=== PATIENT | male | born 1965 | race Caucasian/White ===

== ENCOUNTER 2022-12-18 12:30 | Outpatient (RCR) | payer SELFPAY ==
--- NOTE | 2022-12-18 12:43 | P.CONTMS_ITS ---
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 Horner and has been with a therapist Katie Romero that he has been meeting weekly for the past 10 months including cognitive behavioral approaches. The patient has also had intensive treatment at the [facility] at the [place] [facility] in 2020 and [address] in the summer of 2021. She the patient has had a number of significant losses over the past few years. His father who had been a assistant teaching professor and had been a quite a support for the patient he had been dealing with a very significant left hamstring issue that required intensive treatment in [place] and he was mostly bed ridden for 7 months despite intensive treatment including shockwave treatment and platelet transfusion. Also over this period of time patient had been dealing with issues related to his son who is having significant emotional problems and ultimately this also led to his divorce. The patient has a long history of depression starting in high school but this has been the most significant he reports significant lack of motivation energy ability to enjoy things feeling down depressed hopeless much of the time and at times thoughts that he would be better off . He has had he trouble concentrating and has had poor appetite and often does not want to leave the house. His PHQ-9 is 22 the patient's current medication includes Wellbutrin 300 mg fluoxetine 40 mg Adderall 10 mg twice a day buspirone 15 mg 3 times a day. The past 2 years the patient tried and which trial of Trintellix up to 20 mg day which was not helpful despite being on for over a couple months he had also been tried on Cymbalta up to 120 mg times months which was also generally not beneficial and had significant sexual side effects. The patient had also had a Lamictal trial during this trial which was not helpful. 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 [place] he is somewhat isolated he has a 19-year-old son in college that he is close with Substance History: none Trauma History: Physical trauma to laugh leg with chronic pain Meds/Allergies Meds Home Medications Medication Instructions Recorded Confirmed Type amlodipine 5 mg tablet 5 mg PO DAILY 12/18/22 12/18/22 History bupropion HCl 300 mg 24 hr tablet, 300 mg PO DAILY 12/18/22 12/18/22 History extended release fluoxetine 40 mg capsule 40 mg PO DAILY 12/18/22 12/18/22 History Allergies Allergies Allergy/AdvReac Type Severity Reaction Status Date / Time No Known Allergies Allergy Verified 12/18/22 12:42 Mental Status Exam Mental Status Exam Narrative: Wincing in pain intermittently Patient Appearance: Well Grooomed Patient Orientation: Person, Place, Time and Situation Level of Consciousness: Awake and Appropriate Mood Description: Depressed and Blunted Affect Description: Appropriate, Constricted, Depressed, Anxious and Apprehensive Patient Cognition Impaired: No Ability to Follow Directions: Good Speech Pattern: Clear Memory Description: Intact Hallucinations: None Delusions: Not Present Thought Process: Intact and Goal Oriented Thought Content: positive for Goal Oriented, positive for Preoccupation and negative for Homicidal Ideation Depressive Symptoms: Increased Anxiety, Diff. Making Decisions, Increased Irritability, Crying Spells, Loss of Int. in Activity, Feelings of Worthlessness, Hopelessness, Feelings of Guilt, Increased Fatigue, Thoughts of /Suicide, Low Self Esteem, Loss of Energy and Difficulty Concentrating Judgement: Good Assessment & Plan Assessment & Plan (1) Major depressive disorder, recurrent severe without psychotic features: Status: Acute Code(s): F33.2 - Major depressive disorder, recurrent severe without psychotic features (2) Attention deficit hyperactivity disorder: Status: Acute Code(s): F90.9 - Attention-deficit hyperactivity disorder, unspecified type Plan The patient has a history of severe recurrent depression t with multiple antidepressant trials. The patient's PHQ-9 is quite elevated and is significantly interfering with his ability to function in multiple capacities.here is no history of surgery above the head or neck planted electrode stimulators pacemaker cochlear implant or other contraindications to TMS. Medical history of mild hypertension treated with amlodipine history of hamstring tear with chronic incapacity and pain The patient was able to review information regarding TMS given literature the patient does wish if possible to go forward with treatment. Consideration could be given by doctors medhat to decrease Wellbutrin Total time managing care of this patient today __60__ minutes. Patient educated on: diagnosis, medication risk/benefits and TMS Informed Consent: understands
== END 2022-12-18 23:59 | disposition home or self-care (01) ==
LOC: HO.PTMS 12:30
PROVIDERS: PCP Hospitalist; Visit Provider Psychiatry & Neurology Psychiatry
DX: F33.2 Major depressive disorder, recurrent severe without psychotic features (principal); F90.9 Attention-deficit hyperactivity disorder, unspecified type
CPT/HCPCS: 99205

== ENCOUNTER → 2022-12-29 13:00 | Outpatient (BNV) | payer OTHER, SELFPAY | PROVIDERS: Visit Provider Psychiatry & Neurology Psychiatry | DX: F41.1 Generalized anxiety disorder (principal); F33.2 Major depressive disorder, recurrent severe without psychotic features | CPT/HCPCS: 90867; 90868 ==

== ENCOUNTER → 2023-01-02 11:30 | Outpatient (BNV) | payer OTHER, SELFPAY ==
--- NOTE | 2023-01-14 14:01 | A.OFFPSYCH_ITS ---
Intake Intake Visit Reasons: DEPRESSION Allergies No Known Allergies Allergy (Verified 12/18/22 12:42) HPI- Psychiatric Chief Complaint: DEPRESSION Assessment and Plan Counseling and coordination of Care Details: I spent [] minutes reviewing the record, seeing the patient and documenting in the medical record. Counseling provided to the patient/caregiver as outlined below. Addressed patient/caregiver concerns regarding current medication regime including effective adherence. Addressed patient/caregiver concerns regarding diagnosis and prognosis including accuracy of diagnosis, prognosis over time, impact of diagnosis. Addressed patient/caregiver concerns regarding impact of recent stressors. 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
== END ==
PROVIDERS: Visit Provider Psychiatry & Neurology Psychiatry
DX: F33.2 Major depressive disorder, recurrent severe without psychotic features (principal); F41.1 Generalized anxiety disorder
CPT/HCPCS: 90868; 90869

== ENCOUNTER → 2023-02-16 11:30 | Outpatient (BNV) | payer OTHER, SELFPAY | PROVIDERS: Visit Provider Psychiatry & Neurology Psychiatry | DX: F33.2 Major depressive disorder, recurrent severe without psychotic features (principal) | CPT/HCPCS: 90868 ==

== ENCOUNTER 2023-02-26 16:00 | Outpatient (RCR) | payer OTHER, SELFPAY ==
--- NOTE | 2022-12-30 11:09 | P.PNPS_ITS ---
TMS Daily Progress Note Daily TMS Progress Note Date of Service: 12/30/22 Week #: 1 Treatment #(07-21): 2 PHQ-9 Pre-Treatment (07-18): 22 PHQ-9 Most Recent (07-18): 22 Reviewed: TMS Tech Note Reviewed Verification: I have reviewed the TMS Jukebox Coin Collector Note and agree with the contents. The patient remains a candidate to continue TMS treatment per protocol. Assessment and Plan (1) Attention deficit hyperactivity disorder: Status: Acute (2) Major depressive disorder, recurrent severe without psychotic features: Status: Acute Plan pt with extensive anxiety sx difficulty with current stressors Time Spent With Patient Time: Total time managing care of this patient today ____ minutes.
--- NOTE | 2023-01-04 15:10 | P.PNPS_ITS ---
TMS Daily Progress Note Daily TMS Progress Note Date of Service: 12/31/22 Week #: 1 Treatment #(07-21): 3 PHQ-9 Pre-Treatment (07-18): 22 PHQ-9 Most Recent (07-18): 22 Reviewed: TMS Tech Note Reviewed Verification: I have reviewed the TMS Interventional Nurse Note and agree with the contents. The patient remains a candidate to continue TMS treatment per protocol. Assessment and Plan (1) Attention deficit hyperactivity disorder: Status: Acute (2) Major depressive disorder, recurrent severe without psychotic features: Status: Acute Plan pt with some post tx fatigue Time Spent With Patient Time: Total time managing care of this patient today ____ minutes.
--- NOTE | 2023-01-04 15:12 | P.PNPS_ITS ---
TMS Daily Progress Note Daily TMS Progress Note Date of Service: 01/01/23 Week #: 1 Treatment #(07-21): 4 PHQ-9 Pre-Treatment (07-18): 22 PHQ-9 Most Recent (07-18): 22 Reviewed: TMS Tech Note Reviewed Verification: I have reviewed the TMS Milling Supervisor Note and agree with the contents. The patient remains a candidate to continue TMS treatment per protocol. Assessment and Plan (1) Major depressive disorder, recurrent severe without psychotic features: Status: Acute Plan pt c/o fatigue nausea reviewed potential s/e fatigue with tms potentially pt has a lot of pre tx anxiety with somatic anxiety connection by hx Time Spent With Patient Time: Total time managing care of this patient today ____ minutes.
--- NOTE | 2023-01-04 15:16 | HO.TMSDAILY2 ---
TMS Daily Progress Note Daily TMS Progress Note Date of Service: 01/02/23 Week #: 1 Treatment #(07-21): 5 PHQ-9 Pre-Treatment (07-18): 22 PHQ-9 Most Recent (07-18): 22 Reviewed: TMS Tech Note Reviewed Verification: I have reviewed the TMS Accountant Budget Note and agree with the contents. The patient remains a candidate to continue TMS treatment per protocol. Assessment and Plan (1) Major depressive disorder, recurrent severe without psychotic features: Status: Acute (2) Generalized anxiety disorder: Status: Acute Plan spoke with pt regarding risks benefits side effects tendency toward impulsivity needs much reassurance looking at a vac and if he can set up neuro star tx in that setting tolerating tx Time Spent With Patient Time: Total time managing care of this patient today ____ minutes.
--- NOTE | 2023-01-13 22:05 | HO.TMSDAILY2 ---
TMS Daily Progress Note Daily TMS Progress Note Date of Service: 01/05/23 Week #: 2 Treatment #(07-21): 6 PHQ-9 Pre-Treatment (07-18): 22 PHQ-9 Most Recent (07-18): 14 Reviewed: TMS Tech Note Reviewed Verification: I have reviewed the TMS Electrical System Specialist Note and agree with the contents. The patient remains a candidate to continue TMS treatment per protocol. Assessment and Plan (1) Major depressive disorder, recurrent severe without psychotic features: Status: Acute (2) Generalized anxiety disorder: Status: Acute Plan The patient had a difficult time this weekend having increased anxiety and dysphoria. His mother's having difficult time and he had hard time being with her and his son got into some trouble over the weekend. The patient was increasingly restless eventually was able to settle down patient briefly seen case reviewed treatment tech Time Spent With Patient Time: Total time managing care of this patient today ____ minutes.
--- NOTE | 2023-01-13 22:11 | P.PNPS_ITS ---
TMS Daily Progress Note Daily TMS Progress Note Date of Service: 01/06/23 Week #: 2 Treatment #(07-21): 7 PHQ-9 Pre-Treatment (07-18): 22 PHQ-9 Most Recent (07-18): 14 Reviewed: TMS Tech Note Reviewed Verification: I have reviewed the TMS Air Liaison And Special Staff Note and agree with the contents. The patient remains a candidate to continue TMS treatment per protocol. Assessment and Plan (1) Major depressive disorder, recurrent severe without psychotic features: Status: Acute (2) Generalized anxiety disorder: Status: Acute Plan Patient complains of fatigue as a potential side effect again discussed with patient patient has been anxious jittery depressed has had a number of recent losses stressors Time Spent With Patient Time: Total time managing care of this patient today ____ minutes.
--- NOTE | 2023-01-13 22:20 | P.PNPS_ITS ---
TMS Daily Progress Note Daily TMS Progress Note Date of Service: 01/07/23 Week #: 2 Treatment #(07-21): 8 PHQ-9 Pre-Treatment (07-18): 22 PHQ-9 Most Recent (07-18): 14 Reviewed: TMS Tech Note Reviewed Verification: I have reviewed the TMS Tracing Lathe Set Up Operator Note and agree with the contents. The patient remains a candidate to continue TMS treatment per protocol. Assessment and Plan (1) Major depressive disorder, recurrent severe without psychotic features: Status: Acute Plan Patient continues to be anxious irritable dysphoric has been more stressed react irritable withdrawn and depressed has seemed overwhelmed at times with current stressors Time Spent With Patient Time: Total time managing care of this patient today ____ minutes.
--- NOTE | 2023-01-13 22:23 | P.PNPS_ITS ---
TMS Daily Progress Note Daily TMS Progress Note Date of Service: 01/13/23 Week #: 2 Treatment #(07-21): 9 PHQ-9 Pre-Treatment (07-18): 22 PHQ-9 Most Recent (07-18): 14 Reviewed: TMS Tech Note Reviewed Verification: I have reviewed the TMS Global Transportation Manager Note and agree with the contents. The patient remains a candidate to continue TMS treatment per protocol. Assessment and Plan (1) Major depressive disorder, recurrent severe without psychotic features: Status: Acute Plan The patient continues have concurrent stressors his girlfriend had broken up with him. Number of worsening stressors since he started TMS Time Spent With Patient Time: Total time managing care of this patient today ____ minutes.
--- NOTE | 2023-01-13 22:27 | HO.TMSDAILY2 ---
TMS Daily Progress Note Daily TMS Progress Note Date of Service: 01/09/23 Week #: 2 Treatment #(07-21): 10 PHQ-9 Pre-Treatment (07-18): 22 PHQ-9 Most Recent (07-18): 14 Reviewed: TMS Tech Note Reviewed Verification: I have reviewed the TMS Controls Technician Note and agree with the contents. The patient remains a candidate to continue TMS treatment per protocol. Assessment and Plan (1) Major depressive disorder, recurrent severe without psychotic features: Status: Acute Plan Continues to have difficulty with family stress patient states he has used ketamine in the past but online we did discuss possible treatment with marlena Also discussed options regarding treatment for anxiety irritability discussed speaking with his psychiatrist Time Spent With Patient Time: Total time managing care of this patient today ____ minutes.
--- NOTE | 2023-01-13 22:40 | P.PNPS_ITS ---
TMS Daily Progress Note Daily TMS Progress Note Date of Service: 01/12/23 Week #: 3 Treatment #(07-21): 11 PHQ-9 Pre-Treatment (07-18): 22 PHQ-9 Most Recent (07-18): 14 Reviewed: TMS Tech Note Reviewed Verification: I have reviewed the TMS Downstream Biomanufacturing Technician Note and agree with the contents. The patient remains a candidate to continue TMS treatment per protocol. Assessment and Plan (1) Major depressive disorder, recurrent severe without psychotic features: Status: Acute Plan Patient seems somewhat better today touch base with patient again reviewed options if TMS not effective options of other medications spravato patient seems to have little self soothing had gone date this weekend seem to better grounding. Talked about setting up structure exercise meditation walking trying to do better self-care Time Spent With Patient Time: Total time managing care of this patient today ____ minutes.
--- NOTE | 2023-01-13 22:43 | HO.TMSDAILY2 ---
TMS Daily Progress Note Daily TMS Progress Note Date of Service: 01/13/23 Week #: 3 Treatment #(07-21): 12 PHQ-9 Pre-Treatment (07-18): 22 PHQ-9 Most Recent (07-18): 14 Reviewed: TMS Tech Note Reviewed Verification: I have reviewed the TMS Correspondence Renew Clerk Note and agree with the contents. The patient remains a candidate to continue TMS treatment per protocol. Assessment and Plan (1) Major depressive disorder, recurrent severe without psychotic features: Status: Acute Plan Patient had a somewhat more difficult time today has been ruminating regarding his family felt more depressed and despairing was seen toward the end of treatment he had been making statements regarding prep see might be better off he did state he denied plan or intent he was offered assessment and different options including inpatient treatment if he was not able to maintain his safety patient eventually stated he would be okay was given the number of the crisis team ass to call his psychiatrist Will need to re-evaluate this treatment partial hospital S ketamine may be more the level of treatment patient needs given his level anxiety irritability. Call placed to Dr. oHrner will need to discuss with patient does not seem to have a level of stability for TMS at this time given level anxiety reactivity current family and social stressors. Time Spent With Patient Time: Total time managing care of this patient today ____ minutes.
--- NOTE | 2023-01-14 23:22 | P.PNPS_ITS ---
TMS Daily Progress Note Daily TMS Progress Note Date of Service: 01/14/23 Week #: 3 Treatment #(07-21): 13 PHQ-9 Pre-Treatment (07-18): 22 PHQ-9 Most Recent (07-18): 14 Reviewed: TMS Tech Note Reviewed Verification: I have reviewed the TMS Flight Communications Operator Note and agree with the contents. The patient remains a candidate to continue TMS treatment per protocol. Assessment and Plan (1) Generalized anxiety disorder: Status: Acute (2) Major depressive disorder, recurrent severe without psychotic features: Status: Acute Plan Patient seems somewhat improved today case reviewed with Dr. Horner patient wished to continue treatment denies self-harming thoughts feels stable to continue in treatment we again discussed other treatment options Time Spent With Patient Time: Total time managing care of this patient today ____ minutes.
--- NOTE | 2023-01-15 21:59 | HO.TMSDAILY2 ---
TMS Daily Progress Note Daily TMS Progress Note Date of Service: 01/15/23 Week #: 3 Treatment #(07-21): 14 PHQ-9 Pre-Treatment (07-18): 22 PHQ-9 Most Recent (07-18): 14 Reviewed: TMS Tech Note Reviewed Verification: I have reviewed the TMS Sewing Machine Repairer Note and agree with the contents. The patient remains a candidate to continue TMS treatment per protocol. Assessment and Plan (1) Generalized anxiety disorder: Status: Acute (2) Major depressive disorder, recurrent severe without psychotic features: Status: Acute Plan Patient seems somewhat improved trying to increase MT Time Spent With Patient Time: Total time managing care of this patient today ____ minutes.
--- NOTE | 2023-01-27 11:39 | P.PNPS_ITS ---
TMS Daily Progress Note Daily TMS Progress Note Date of Service: 01/16/23 Week #: 3 Treatment #(07-21): 15 PHQ-9 Pre-Treatment (07-18): 22 PHQ-9 Most Recent (07-18): 17 Reviewed: TMS Tech Note Reviewed Verification: I have reviewed the TMS Optomechanical Engineer Note and agree with the contents. The patient remains a candidate to continue TMS treatment per protocol. Assessment and Plan (1) Major depressive disorder, recurrent severe without psychotic features: Status: Acute (2) Attention deficit hyperactivity disorder: Status: Acute (3) Generalized anxiety disorder: Status: Acute Plan Patient continues to be variable we had discussed options to discontinue treatment ago [facility] patient has wished to continue did denies any active SI call had been placed to his psychiatrist Dr. meléndez Time Spent With Patient Time: Total time managing care of this patient today ____ minutes.
--- NOTE | 2023-01-27 11:42 | HO.TMSDAILY2 ---
TMS Daily Progress Note Daily TMS Progress Note Date of Service: 01/19/23 Week #: 4 Treatment #(07-21): 16 PHQ-9 Pre-Treatment (07-18): 22 PHQ-9 Most Recent (07-18): 18 Reviewed: TMS Tech Note Reviewed Verification: I have reviewed the TMS Entertainment Centre Manager Note and agree with the contents. The patient remains a candidate to continue TMS treatment per protocol. Assessment and Plan (1) Major depressive disorder, recurrent severe without psychotic features: Status: Acute (2) Attention deficit hyperactivity disorder: Status: Acute (3) Generalized anxiety disorder: Status: Acute Plan Patient continues to be variable tolerating treatment some improvement noted today by the end of treatment Time Spent With Patient Time: Total time managing care of this patient today ____ minutes.
--- NOTE | 2023-01-27 11:45 | P.PNPS_ITS ---
TMS Daily Progress Note Daily TMS Progress Note Date of Service: 01/21/23 Week #: 4 Treatment #(07-21): 18 PHQ-9 Pre-Treatment (07-18): 22 PHQ-9 Most Recent (07-18): 18 Reviewed: TMS Tech Note Reviewed Verification: I have reviewed the TMS Dolly Driver Note and agree with the contents. The patient remains a candidate to continue TMS treatment per protocol. Assessment and Plan (1) Major depressive disorder, recurrent severe without psychotic features: Status: Acute (2) Attention deficit hyperactivity disorder: Status: Acute (3) Generalized anxiety disorder: Status: Acute Plan Patient continues to be variable tolerating treatment no adverse effects no clear improvement to this point not overly agitated Time Spent With Patient Time: Total time managing care of this patient today ____ minutes.
--- NOTE | 2023-01-27 11:47 | P.PNPS_ITS ---
TMS Daily Progress Note Daily TMS Progress Note Date of Service: 01/22/23 Week #: 4 Treatment #(07-21): 19 PHQ-9 Pre-Treatment (07-18): 22 PHQ-9 Most Recent (07-18): 18 Reviewed: TMS Tech Note Reviewed Verification: I have reviewed the TMS Roof Bolting Coal Miner Note and agree with the contents. The patient remains a candidate to continue TMS treatment per protocol. Assessment and Plan (1) Major depressive disorder, recurrent severe without psychotic features: Status: Acute (2) Attention deficit hyperactivity disorder: Status: Acute (3) Generalized anxiety disorder: Status: Acute Plan Patient continues to be variable tolerating treatment no adverse effects no clear improvement to this point not overly agitated Time Spent With Patient Time: Total time managing care of this patient today ____ minutes.
--- NOTE | 2023-01-27 11:48 | HO.TMSDAILY2 ---
TMS Daily Progress Note Daily TMS Progress Note Date of Service: 01/23/23 Week #: 4 Treatment #(07-21): 20 PHQ-9 Pre-Treatment (07-18): 22 PHQ-9 Most Recent (07-18): 18 Reviewed: TMS Tech Note Reviewed Verification: I have reviewed the TMS Floor Coverer Apprentice Note and agree with the contents. The patient remains a candidate to continue TMS treatment per protocol. Assessment and Plan (1) Major depressive disorder, recurrent severe without psychotic features: Status: Acute Plan Patient is stating is starting to feel somewhat better Time Spent With Patient Time: Total time managing care of this patient today ____ minutes.
--- NOTE | 2023-01-27 11:50 | HO.TMSDAILY2 ---
TMS Daily Progress Note Daily TMS Progress Note Date of Service: 01/26/23 Week #: 5 Treatment #(07-21): 21 PHQ-9 Pre-Treatment (07-18): 22 PHQ-9 Most Recent (07-18): 18 Reviewed: TMS Tech Note Reviewed Verification: I have reviewed the TMS Education And Training Manager Note and agree with the contents. The patient remains a candidate to continue TMS treatment per protocol. Assessment and Plan (1) Major depressive disorder, recurrent severe without psychotic features: Status: Acute Plan Patient had been feeling significantly better a few days ago somewhat tearful today has been variable Time Spent With Patient Time: Total time managing care of this patient today ____ minutes.
--- NOTE | 2023-01-27 11:54 | HO.TMSDAILY2 ---
TMS Daily Progress Note Daily TMS Progress Note Date of Service: 01/28/23 Week #: 5 Treatment #(07-21): 22 PHQ-9 Pre-Treatment (07-18): 22 PHQ-9 Most Recent (07-18): 17 Reviewed: TMS Mapping/Re-mapping completed Verification: I have reviewed the TMS Reservation Clerk Note and agree with the contents. The patient remains a candidate to continue TMS treatment per protocol. Assessment and Plan (1) Major depressive disorder, recurrent severe without psychotic features: Status: Acute (2) Generalized anxiety disorder: Status: Acute (3) Attention deficit hyperactivity disorder: Status: Acute Plan REMAPPING COMPLETED NEW SETTINGS PT HAD NOT HAD CHANGES TO THIS POINT DID SEE NEW PERSONAL CARE ASSISTANT NOT DR CARRILLO Time Spent With Patient Time: Total time managing care of this patient today _35___ minutes.
--- NOTE | 2023-02-06 15:40 | P.PNPS_ITS ---
TMS Daily Progress Note Daily TMS Progress Note Date of Service: 01/30/23 Week #: 5 Treatment #(07-21): 24 PHQ-9 Pre-Treatment (07-18): 22 PHQ-9 Most Recent (07-18): 17 Reviewed: TMS Tech Note Reviewed Verification: I have reviewed the TMS Commercial Ocean Clammer Note and agree with the contents. The patient remains a candidate to continue TMS treatment per protocol. Assessment and Plan (1) Generalized anxiety disorder: Status: Acute (2) Major depressive disorder, recurrent severe without psychotic features: Status: Acute Plan REMAINS WITH TENDENCY TO RUMINATE NO CLEAR CHANGE TO THIS POINT SEEMS TO BE TOLERATING TREATMENT Time Spent With Patient Time: Total time managing care of this patient today ____ minutes.
--- NOTE | 2023-02-06 15:45 | P.PNPS_ITS ---
TMS Daily Progress Note Daily TMS Progress Note Date of Service: 02/02/23 Week #: 5 Treatment #(07-21): 25 PHQ-9 Pre-Treatment (07-18): 22 PHQ-9 Most Recent (07-18): 10 Reviewed: TMS Tech Note Reviewed Verification: I have reviewed the TMS Concrete Batching Plant Operator Note and agree with the contents. The patient remains a candidate to continue TMS treatment per protocol. Assessment and Plan (1) Generalized anxiety disorder: Status: Acute (2) Major depressive disorder, recurrent severe without psychotic features: Status: Acute Plan PATIENT BEGINNING TO SHOW SOME IMPROVEMENT Time Spent With Patient Time: Total time managing care of this patient today ____ minutes.
--- NOTE | 2023-02-06 15:51 | P.PNPS_ITS ---
TMS Daily Progress Note Daily TMS Progress Note Date of Service: 02/05/23 Week #: 6 Treatment #(07-21): 26 PHQ-9 Pre-Treatment (07-18): 22 PHQ-9 Most Recent (07-18): 10 Reviewed: TMS Tech Note Reviewed Verification: I have reviewed the TMS Animal Surgeon Note and agree with the contents. The patient remains a candidate to continue TMS treatment per protocol. Assessment and Plan (1) Generalized anxiety disorder: Status: Acute (2) Attention deficit hyperactivity disorder: Status: Acute Plan PATIENT SEEMS TO BE CLEARLY IMPROVING NO ADVERSE EFFECTS NOTED Time Spent With Patient Time: Total time managing care of this patient today ____ minutes.
--- NOTE | 2023-02-16 15:35 | P.PNPS_ITS ---
TMS Daily Progress Note Daily TMS Progress Note Date of Service: 02/13/23 Week #: 7 Treatment #(-30): 31 PHQ-9 Pre-Treatment (1-): 22 PHQ-9 Most Recent (-): 10 AMANDA-7 Pre-Treatment (0-21): 18 AMANDA-7 Most Recent (0-21): 5 Reviewed: TMS Tech Note Reviewed Verification: I have reviewed the TMS Cutting Machine Operator Helper Note and agree with the contents. The patient remains a candidate to continue TMS treatment per protocol. Assessment and Plan Time Spent With Patient Time: Total time managing care of this patient today ____ minutes.
--- NOTE | 2023-02-16 15:38 | HO.TMSDAILY2 ---
TMS Daily Progress Note Daily TMS Progress Note Date of Service: 02/11/23 Week #: 6 Treatment #(-30): 30 PHQ-9 Pre-Treatment (-): 20 PHQ-9 Most Recent (07-18): 14 AMANDA-7 Pre-Treatment (0-21): 18 AMANDA-7 Most Recent (0-21): 11 Reviewed: TMS Tech Note Reviewed Verification: I have reviewed the TMS Plant Equipment Engineer Note and agree with the contents. The patient remains a candidate to continue TMS treatment per protocol. Assessment and Plan Time Spent With Patient Time: Total time managing care of this patient today ____ minutes.
--- NOTE | 2023-02-16 15:40 | HO.TMSDAILY2 ---
TMS Daily Progress Note Daily TMS Progress Note Date of Service: 02/06/23 Week #: 6 Treatment #(-30): 22 PHQ-9 Pre-Treatment (-): 10 PHQ-9 Most Recent (07-18): 10 AMANDA-7 Pre-Treatment (0-21): 18 AMANDA-7 Most Recent (0-21): 9 Reviewed: TMS Tech Note Reviewed Verification: I have reviewed the TMS Hardwood Floor Installer Note and agree with the contents. The patient remains a candidate to continue TMS treatment per protocol. Assessment and Plan Time Spent With Patient Time: Total time managing care of this patient today ____ minutes.
--- NOTE | 2023-02-16 15:42 | P.PNPS_ITS ---
TMS Daily Progress Note Daily TMS Progress Note Date of Service: 02/09/23 Week #: 6 Treatment #(-30): 20 PHQ-9 Pre-Treatment (-): 14 PHQ-9 Most Recent (07-18): 10 AMANDA-7 Pre-Treatment (0-): 18 AMANDA-7 Most Recent (0-): 11 Reviewed: TMS Tech Note Reviewed Verification: I have reviewed the TMS Patternmaker Hand Note and agree with the contents. The patient remains a candidate to continue TMS treatment per protocol. Assessment and Plan Time Spent With Patient Time: Total time managing care of this patient today ____ minutes.
--- NOTE | 2023-02-17 22:01 | P.PNPS_ITS ---
TMS Daily Progress Note Daily TMS Progress Note Date of Service: 02/16/23 Week #: 7 Treatment #(-30): 32 PHQ-9 Pre-Treatment (-): 14 PHQ-9 Most Recent (07-18): 10 AMANDA-7 Pre-Treatment (0-21): 18 AMANDA-7 Most Recent (0-21): 11 Reviewed: TMS Tech Note Reviewed Verification: I have reviewed the TMS Enterprise Resource Planning Consultant Note and agree with the contents. The patient remains a candidate to continue TMS treatment per protocol. Assessment and Plan (1) Generalized anxiety disorder: Status: Acute (2) Attention deficit hyperactivity disorder: Status: Acute (3) Major depressive disorder, recurrent severe without psychotic features: Status: Acute Plan Patient show significant improvement Time Spent With Patient Time: Total time managing care of this patient today ____ minutes.
--- NOTE | 2023-02-17 22:08 | P.PNPS_ITS ---
TMS Daily Progress Note Daily TMS Progress Note Date of Service: 02/06/23 Week #: 6 Treatment #(-30): 27 PHQ-9 Pre-Treatment (1-): 20 PHQ-9 Most Recent (07-18): 10 AMANDA-7 Pre-Treatment (0-21): 18 AMANDA-7 Most Recent (0-21): 11 Reviewed: TMS Tech Note Reviewed Verification: I have reviewed the TMS Risk And Insurance Manager Note and agree with the contents. The patient remains a candidate to continue TMS treatment per protocol. Assessment and Plan Time Spent With Patient Time: Total time managing care of this patient today ____ minutes.
--- NOTE | 2023-02-25 21:40 | HO.TMSDAILY2 ---
TMS Daily Progress Note Daily TMS Progress Note Date of Service: 02/09/23 Week #: 6 Treatment #(-30): 28 PHQ-9 Pre-Treatment (-): 20 PHQ-9 Most Recent (07-18): 10 AMANDA-7 Pre-Treatment (0-): 18 AMANDA-7 Most Recent (0-): 11 Reviewed: TMS Tech Note Reviewed Verification: I have reviewed the TMS Bottoming Machine Operator Note and agree with the contents. The patient remains a candidate to continue TMS treatment per protocol. Assessment and Plan (1) Generalized anxiety disorder: Status: Acute (2) Major depressive disorder, recurrent severe without psychotic features: Status: Acute Plan generally improved Time Spent With Patient Time: Total time managing care of this patient today ____ minutes.
--- NOTE | 2023-02-25 21:42 | P.PNPS_ITS ---
TMS Daily Progress Note Daily TMS Progress Note Date of Service: 02/10/23 Week #: 6 Treatment #(-30): 29 PHQ-9 Pre-Treatment (-): 20 PHQ-9 Most Recent (07-18): 10 AMANDA-7 Pre-Treatment (0-21): 18 AMANDA-7 Most Recent (0-21): 11 Reviewed: TMS Tech Note Reviewed Verification: I have reviewed the TMS Payroll Administrator Note and agree with the contents. The patient remains a candidate to continue TMS treatment per protocol. Assessment and Plan Time Spent With Patient Time: Total time managing care of this patient today ____ minutes.
--- NOTE | 2023-02-25 21:45 | HO.TMSDAILY2 ---
TMS Daily Progress Note Daily TMS Progress Note Date of Service: 02/11/23 Week #: 6 Treatment #(-30): 30 PHQ-9 Pre-Treatment (1-): 20 PHQ-9 Most Recent (07-18): 10 AMANDA-7 Pre-Treatment (0-21): 18 AMANDA-7 Most Recent (0-21): 11 Reviewed: TMS Tech Note Reviewed Verification: I have reviewed the TMS Multicut Line Operator Note and agree with the contents. The patient remains a candidate to continue TMS treatment per protocol. Assessment and Plan Time Spent With Patient Time: Total time managing care of this patient today ____ minutes.
--- NOTE | 2023-02-25 21:50 | HO.TMSDAILY2 ---
TMS Daily Progress Note Daily TMS Progress Note Date of Service: 02/13/23 Week #: 7 Treatment #(-30): 31 PHQ-9 Pre-Treatment (1-): 20 PHQ-9 Most Recent (07-18): 10 AMANDA-7 Pre-Treatment (0-21): 18 AMANDA-7 Most Recent (0-21): 11 Reviewed: TMS Tech Note Reviewed Verification: I have reviewed the TMS Police Communications Dispatcher Note and agree with the contents. The patient remains a candidate to continue TMS treatment per protocol. Assessment and Plan Time Spent With Patient Time: Total time managing care of this patient today ____ minutes.
--- NOTE | 2023-02-25 21:55 | P.PNPS_ITS ---
TMS Daily Progress Note Daily TMS Progress Note Date of Service: 02/16/23 Week #: 7 Treatment #(-30): 32 PHQ-9 Pre-Treatment (-): 20 PHQ-9 Most Recent (07-18): 6 AMANDA-7 Pre-Treatment (0-21): 18 AMANDA-7 Most Recent (0-21): 11 Reviewed: TMS Tech Note Reviewed Verification: I have reviewed the TMS Apprentice Pattern Maker Note and agree with the contents. The patient remains a candidate to continue TMS treatment per protocol. Assessment and Plan Time Spent With Patient Time: Total time managing care of this patient today ____ minutes.
--- NOTE | 2023-02-25 21:57 | P.PNPS_ITS ---
TMS Daily Progress Note Daily TMS Progress Note Date of Service: 02/18/23 Week #: 7 Treatment #(-): 33 PHQ-9 Pre-Treatment (-): 20 PHQ-9 Most Recent (07-18): 6 AMANDA-7 Pre-Treatment (0-21): 18 AMANDA-7 Most Recent (0-21): 11 Reviewed: TMS Tech Note Reviewed Verification: I have reviewed the TMS Machine Setter And Repairer Note and agree with the contents. The patient remains a candidate to continue TMS treatment per protocol. Assessment and Plan Time Spent With Patient Time: Total time managing care of this patient today ____ minutes.
--- NOTE | 2023-02-25 21:59 | P.PNPS_ITS ---
TMS Daily Progress Note Daily TMS Progress Note Date of Service: 02/19/23 Week #: 8 Treatment #(-30): 34 PHQ-9 Pre-Treatment (1-): 20 PHQ-9 Most Recent (07-18): 6 AMANDA-7 Pre-Treatment (0-21): 18 AMANDA-7 Most Recent (0-21): 11 Reviewed: TMS Tech Note Reviewed Verification: I have reviewed the TMS Exercise Teacher Note and agree with the contents. The patient remains a candidate to continue TMS treatment per protocol. Assessment and Plan (1) Major depressive disorder, recurrent severe without psychotic features: Status: Acute Plan cont tx plan Time Spent With Patient Time: Total time managing care of this patient today ____ minutes.
--- NOTE | 2023-02-25 22:02 | P.PNPS_ITS ---
TMS Daily Progress Note Daily TMS Progress Note Date of Service: 02/24/23 Week #: 8 Treatment #(07-21): 35 PHQ-9 Pre-Treatment (-): 20 PHQ-9 Most Recent (07-18): 6 AMANDA-7 Pre-Treatment (0-21): 18 AMANDA-7 Most Recent (0-21): 11 Reviewed: TMS Tech Note Reviewed Verification: I have reviewed the TMS Press Shop Supervisor Note and agree with the contents. The patient remains a candidate to continue TMS treatment per protocol. Assessment and Plan (1) Major depressive disorder, recurrent severe without psychotic features: Status: Acute Plan Patient showing marked improvement despite early difficulties with treatment. Reviewed read treatment options no significant side effects noted by patient with clear improvement noted Time Spent With Patient Time: Total time managing care of this patient today ____ minutes.
== END 2023-02-27 11:43 | disposition home or self-care (01) ==
LOC: HO.PTMS 16:00
PROVIDERS: Visit Provider Psychiatry & Neurology Psychiatry
DX: F33.2 Major depressive disorder, recurrent severe without psychotic features (principal); F90.9 Attention-deficit hyperactivity disorder, unspecified type
CPT/HCPCS: 90867; 90868; 90869